=== PATIENT | male | born 1950 | race Caucasian/White ===

== ENCOUNTER 2017-04-11 22:59 | Emergency (ER) | payer OTHER, MEDICARE ==
[~2017-04-11] VITALS: Ht 177.8 cm; Wt 91.6 kg
[2017-04-12] MEDS ORDERED: PERCOCET 5/31 TABLET PO (00:27)
[2017-04-12] MEDS ORDERED: NAPROXEN500 MG PO (00:27)
[2017-04-12 00:51] VITALS: BP 167/101
== END 2017-04-12 00:52 | disposition home or self-care (01) ==
LOC: EME 22:59
DX: S22.31XA Fracture of one rib, right side, initial encounter for closed fracture (principal); E10.9 Type 1 diabetes mellitus without complications; I10 Essential (primary) hypertension; W19.XXXA Unspecified fall, initial encounter; W22.8XXA Striking against or struck by other objects, initial encounter
CPT/HCPCS: 71101; 99281; 99284